=== PATIENT | female | born 1990 | race Caucasian/White ===

== ENCOUNTER → 2019-10-23 09:23 | Outpatient (BNVA) | payer MEDICAID, SELFPAY | PROVIDERS: Family Provider Family Medicine; Visit Provider Obstetrics & Gynecology | DX: Z32.01 Encounter for pregnancy test, result positive (principal) | CPT/HCPCS: 81025 ==

== ENCOUNTER → 2019-12-01 13:28 | Outpatient (BNVA) | payer MEDICAID, SELFPAY | PROVIDERS: Family Provider Family Medicine; Visit Provider Nurse Practitioner Women's Health | DX: O99.281 Endocrine, nutritional and metabolic diseases complicating pregnancy, first trimester (principal); O09.891 Supervision of other high risk pregnancies, first trimester; Z3A.10 10 weeks gestation of pregnancy | CPT/HCPCS: 81000 ==

== ENCOUNTER → 2019-12-15 13:53 | Outpatient (BNVA) | payer MEDICAID, SELFPAY | PROVIDERS: Family Provider Family Medicine; Visit Provider Obstetrics & Gynecology | DX: O09.299 Supervision of pregnancy with other poor reproductive or obstetric history, unspecified trimester (principal); O99.280 Endocrine, nutritional and metabolic diseases complicating pregnancy, unspecified trimester; E03.9 Hypothyroidism, unspecified; Z12.4 Encounter for screening for malignant neoplasm of cervix; Z3A.00 Weeks of gestation of pregnancy not specified | CPT/HCPCS: 80053; 80307; 81000; 84443; 85027; 86592; 86762; 86803; 86850; 86900; 87086; 87340; 87491; 87591; 87806; 88175 ==

== ENCOUNTER 2019-12-17 09:12 | Outpatient (CLI) | payer MEDICAID, SELFPAY ==
[2019-12-17 09:36] LABS: Total Volume, Urine 3000 mL
[2019-12-17 10:08] LABS: Total Protein 24 Hour Urine < 120.0 mg/24HR (0-150); Urine Total Protein 24 Hour < 4.0 mg/dL (0-150)
== END 2019-12-17 09:13 | disposition home or self-care (01) ==
LOC: LAB 09:13
PROVIDERS: Family Provider Family Medicine; Visit Provider Obstetrics & Gynecology
DX: O09.299 Supervision of pregnancy with other poor reproductive or obstetric history, unspecified trimester (principal)
CPT/HCPCS: 84156

== ENCOUNTER 2020-06-16 19:52 | Inpatient (IN) | payer BC, MEDICAID, SELFPAY ==
[2020-06-16] VITALS (62 sets, daily range): BP systolic 103–171; BP diastolic 60–89; PULSE 64–92; TEMP 36.3; O2SAT 97–100; BMI 31.4
[2020-06-16] MEDS: ampicillin 2,000 MG in sodium chloride 0.9% (plus) 50 ML 100 MG IV (20:35)
[2020-06-16] MEDS: lactated ringers 1,000 ML 999 ML IV (20:35)
[2020-06-16 20:45] LABS: Basophils % 0.2 %; Eosinophils # 0.1 10^3/uL (0.0-0.8); Eosinophils % 0.4 %; Hematocrit 39.3 % (37.0-47.0); Hemoglobin 13.4 g/dL (11.5-15.3); Lymphocytes # 2.1 10^3/uL (0.8-4.8); Lymphocytes % 15.7 %; Mean Corpuscular HGB Conc 34.1 g/dL (30.0-36.0); Mean Corpuscular Hemoglobin 30.5 pg (28.0-34.0); Mean Corpuscular Volume 89.5 fL (81-99); Mean Platelet Volume 12.3 fL (7.4-10.4); Monocytes # 0.7 10^3/uL (0.2-0.9); Monocytes % 5.2 %; Neutrophils % 78.2 %; Nucleated Red Blood Cells % 0 %; Platelet Count 217 10^3/cmm (130-400); Red Blood Count 4.39 10^6/uL (4.1-5.3); Red Cell Distribution Width 13.2 % (12.1-15.1); White Blood Count 13.5 10^3/uL (4.0-10.0)
--- NOTE | 2020-06-16 20:50 | P.ANESASSM_ITS ---
Pre-Anesthetic Assessment Pre-Anesthetic Assessment: Height/Weight: Height 1.7 m Temp Pulse BP Pulse Ox 97.3 F L 80 130/76 100 06/16/20 19:36 06/16/20 21:11 06/16/20 21:11 06/16/20 21:11 Preop Diagnosis: IUP Proposed Procedure: LABOR EPIDURAL Was Beta Aubrey taken within 24 hours: N/A Was Clonidine taken within 24 hours: N/A Social: Social History: No alcohol and No tobacco Exam: Pre-Anes Outpt Exam: alert, oriented x 3, clear to auscultation bilaterally and regular rate & rhythm Airway: Submandibular: WNL Cervical ROM: WNL MP: 1 History/ROS: No significant history except as noted Pulmonary: Pulmonary: None reported CV/HEM: CV/HEM: None reported : : None reported Hepatic: Hepatic: None reported GI: GI: GERD Metabolic: Metabolic: Thyroid Musc/skel: Musc/skel: None reported Neuropsych: Neuropsych: None reported Anesthetic Plan: ASA status: 1 Anesthesia: Anesthesia Evaluation Risk of > 500 ml blood loss (7ml/kg in children): No Meds/Allergies Current Medications: Current Medications Generic Name Dose Route Start Last Admin Trade Name Freq PRN Reason Stop Dose Admin Lactated Ringer's 1,000 mls @ 999 m ls/hr 06/16/20 19:51 06/16/20 20:35 Lactated Ringers IV 999 mls/hr .Q1H1M PRN Administration See label comment s PFSH Anesthesia PFSH: Medical History (Updated 12/18/19 @ 17:50 by Mague Walsh MD) Hypothyroidism Diagnosed as a teenager however was only started on medication in 2018 No pertinent past medical history Denies diabetes, asthma, hypertension, seizures, DVT/PE 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[facility] Surgical History H/O removal of cyst (~2014) 2014--sinus cavity Family History Family/Other Family history of thyroid problem Paternal uncle maternal aunt Grandmother Heart disease Maternal Mother Hypertension Denies family history of Colon cancer Ovarian cancer Diabetes Hyperlipidemia Breast cancer Uterine cancer Stroke Social History Smoking and tobacco status: never smoked Alcohol intake: never Other details last substance use: Denies drug use Additional social history: - - Data Anesthesia CBC & Chem 7: 06/16/20 20:30 Other Labs: Laboratory Results - last 48 hr 06/16/20 20:30 WBC 13.5 H RBC 4.39 Hgb 13.4 Hct 39.3 MCV 89.5 MCH 30.5 MCHC 34.1 RDW 13.2 Plt Count 217 MPV 12.3 H Neut % (Auto) 78.2 Lymph % (Auto) 15.7 [place] % (Auto) 5.2 Eos % (Auto) 0.4 Baso % (Auto) 0.2 Neut # (Auto) 10.60 H Lymph # (Auto) 2.1 [place] # (Auto) 0.7 Eos # (Auto) 0.1 Baso # (Auto) 0.0 Nucleated RBC % (auto) 0 Nucleated RBCs # 0.0 Cardiac Studies: No Data to Display
--- NOTE | 2020-06-16 21:16 | ANES.PROC ---
Anesthesia Procedures Procedure/Date: 06/16/20 Epidural: Time Out Performed: Yes Consents Signed: Procedure Consent Consent: requested by attending/covering physician Lumbar Level: L3-L4 Epidural position: sitting Epidural procedure: sterile prep of area, 1% lidocaine to numb the area, 18 g needle, negative for paresthesia passed, neg for paresthesia, test dose given, 1.5% xylocaine 1:200k epi (5ML), placed PCEA, no systemic response, sterile dressing applied, L.U.D. no apparent complications and 0.2% Ropiavacaine @ mls/hr (13)
[2020-06-17] VITALS (27 sets, daily range): BP systolic 109–133; BP diastolic 55–93; PULSE 69–100; RESP 16–17; TEMP 36.6–36.8; O2SAT 99–100
[2020-06-17] MEDS: ampicillin 1,000 MG in sodium chloride 0.9% (plus) 50 ML 100 MG IV (00:12)
[2020-06-17] MEDS: oxytocin 30 UNIT/500 ML BAG 600 UNIT IV (01:13)
--- NOTE | 2020-06-17 01:24 | PM.DELIVERY ---
Delivery Note: Date of delivery: June 17, 2020 Pre-delivery diagnoses: 9-year-old 2 para 1-0-0-1 with an estimated stational age of 38 weeks presenting in active labor Post-delivery diagnoses: Status post spontaneous vaginal delivery Procedure: Spontaneous vaginal delivery Op report anesthesia: Epidural Delivering Physician: Renato Palencia Estimated blood loss (mL): 200 Pre-Delivery Course: The patient presented to the hospital in active labor. She began having contractions a couple of hours prior to arriving at the hospital. An epidural was obtained. An amniotomy was performed. She received 2 doses of ampicillin as a part of her GBS protocol. She progressed to complete without difficulty. Her was unremarkable. Her blood type was B+. She was group B strep positive. She was Covid negative. Her glucose screen was negative. The remainder of her labs are within normal limits. Delivery: DELIVERY: The patient progressed to complete without difficulty. She delivered a male with a weight of 7 pounds 2 ounces with Apgars of 9, 10. The baby was delivered from the LOU position. The baby's mouth and nose were suctioned at the site of the perineum. The baby was then completely delivered and placed on the mother's abdomen. The cord was then clamped and cut. There was no nuchal cord. There was no meconium. The placenta and 3 vessel cord were delivered intact shortly thereafter. The perineum and vaginal vault were carefully examined. No lacerations were noted. Both the mother and the baby were in stable condition. Post-Delivery Status: Good Coding Level of Care Code Acute Activities Aide for Dave Thakkar
[2020-06-17] MEDS: lanolin oint 7 gm 1 APPLIC TOPICAL (05:32)
[2020-06-17] MEDS: benzocaine-menthol 78 gm Canister 1 SPRAY TOPICAL (05:33)
[2020-06-17] MEDS: docusate sodium 100 mg Capsule PO ×2 (09:09→18:24)
[2020-06-17] MEDS: prenatal vitamin Capsule 1 CAP PO (09:09)
[2020-06-17] MEDS: ibuprofen 800 mg tablet PO ×3 (09:09→21:23)
--- NOTE | 2020-06-17 12:23 | PC.NURSE ---
note This mom reports her last feeding went very well since our discussion this morning about positioning and latch.
[2020-06-17 14:02] LABS: Hematocrit 36.8 % (37.0-47.0); Hemoglobin 12.7 g/dL (11.5-15.3); Mean Corpuscular HGB Conc 34.5 g/dL (30.0-36.0); Mean Corpuscular Hemoglobin 31.2 pg (28.0-34.0); Mean Corpuscular Volume 90.4 fL (81-99); Mean Platelet Volume 12.4 fL (7.4-10.4); Platelet Count 191 10^3/cmm (130-400); Red Blood Count 4.07 10^6/uL (4.1-5.3); Red Cell Distribution Width 13.3 % (12.1-15.1); White Blood Count 12.8 10^3/uL (4.0-10.0)
[2020-06-18 05:31] VITALS: BP 118/69; PULSE 62
[2020-06-18] MEDS: prenatal vitamin Capsule 1 CAP PO (08:44)
[2020-06-18] MEDS: docusate sodium 100 mg Capsule PO (08:44)
[2020-06-18] MEDS: ibuprofen 800 mg tablet PO (08:44)
[2020-06-18 08:45] VITALS: BP 123/64; PULSE 77; RESP 18; TEMP 35.8
--- NOTE | 2020-06-18 08:53 | P.DS_ITS ---
Discharge Providers DIRECTOR ACCOUNT MANAGEMENT Date of Admission: 06/16/20 19:52 Date of Discharge: 06/18/20 Attending Provider at Admission: Renato Palencia MD Attending Provider at Discharge: Renato Palencia MD Primary Care Provider: [facility] Diagnoses at Discharge Discharge Diagnosis (1) 39 weeks gestation of : Status: Acute (2) Spontaneous vaginal delivery: Status: Acute Reason for Visit Reason for Visit: contractions Hospital Course Hospital Course The patient presented to the hospital in active labor. She obtained an epidural. An amniotomy was performed. She progressed to complete and had an unremarkable delivery of a healthy appearing male . Her course was also unremarkable. Her bleeding was within normal limits. She breast-fed well. Her pain was well controlled. Information Peripartum Data: Infant Delivery Method: Vaginal Physical Exam Narrative: EXAM NARRATIVE: The patient is alert. She appears comfortable. Her heart has a regular rate and rhythm with no murmurs appreciated. Lungs are clear to auscultation bilaterally. Her fundus is firm and below the umbilicus. Urinary Catheter Management^: Ramírez Latex Free: Cath Placed During This Visit: yes Urinary Catheter Date of Insertion: 06/16/20 Urinary Catheter Time of Insertion: 21:40 Discharge Data Data Completed and Pending: Labs from last 24 hours 06/17/20 13:15 WBC 12.8 H RBC 4.07 L Hgb 12.7 Hct 36.8 L MCV 90.4 MCH 31.2 MCHC 34.5 RDW 13.3 Plt Count 191 MPV 12.4 H Vitals: Last Vital Signs Temp 96.4 F L 06/18/20 08:45 Pulse 77 06/18/20 08:45 Resp 18 06/18/20 08:45 BP 123/64 06/18/20 08:45 Pulse Ox 100 06/17/20 00:11 Discharge Plan Discharge Patient Disposition: Home Condition: Stable Prescriptions: New ibuprofen 800 mg Tablet 800 mg PO TID Qty: 30 RF: 0 Continued levothyroxine 125 mcg capsule 125 mcg PO DAILY RF: 0 prenat.vits,dania,uls-ufyq-kxhch Tablet 1 tab PO DAILY RF: 0 Discharge Orders: Discharge Order (Routine); Ordered 06/18/20 Ordered By: Renato Palencia Referrals: Renato Palencia MD [Physician] - 07/28/20 11:15 am (Your 6 week post- appointment is scheduled for 07/28/20 with at 11:15. ) Discharge Diet: Usual diet Discharge Activity: Limit activity as instructed Patient Instructions: Vitamins (By mouth), Your Baby (GEN), Pre-eclampsia and Eclampsia (DC), Bleeding (DC), OB Discharge Report, OB Food/Drug Interaction Guide, OB Proud Parent Packet, OB Vaginal Deliveries Activity Restrictions/Additional Instructions: Repeat TSH prior to appointment in 6 weeks Discharge Attestations DIRECTOR ACCOUNT MANAGEMENT Time Spent in Discharge Care*: less than 30 min Specific Discharge Activities: Specific discharge activities: educating patient Coding Level of Care Code Acute Assistant Federal Public [employer] for Chg Fwd Diagnoses 39 weeks gestation of Z3A.39 Spontaneous vaginal delivery O80
[2020-06-18 10:13] VITALS: BP 123/64; PULSE 77; RESP 18; TEMP 35.8
== END 2020-06-18 10:05 | disposition home or self-care (01) | DRG 807 ==
LOC: OPOB 19:52 → OBGYN 19:52
PROVIDERS: Admitting Provider Family Medicine; Visit Provider Family Medicine
DX: O99.824 Streptococcus B carrier state complicating childbirth (principal); Z37.0 Single live birth; O99.284 Endocrine, nutritional and metabolic diseases complicating childbirth; Z3A.38 38 weeks gestation of pregnancy; E03.9 Hypothyroidism, unspecified; K21.9 Gastro-esophageal reflux disease without esophagitis; Z20.822 Contact with and (suspected) exposure to COVID-19
CPT/HCPCS: 12345; 36415; 51702; 59025; 59409; 85025; 85027; 98960; 99211; J0290; J2795

== ENCOUNTER 2024-06-02 07:10 | Inpatient (IN) | payer BC, MEDICAID, SELFPAY ==
[2024-06-02] VITALS (69 sets, daily range): BP systolic 107–160; BP diastolic 62–95; PULSE 65–118; TEMP 35.8–36.8; O2SAT 92–100; BMI 30.7
[2024-06-02] MEDS: oxytocin 30 UNIT/500 ML BAG IV (08:15)
[2024-06-02] MEDS: dextrose 5%-lactated ringers 1,000 ML 125 ML IV ×2 (08:17→15:37)
[2024-06-02 09:38] LABS: Basophils % 0.1 %; Eosinophils # 0.1 10^3/uL (0.0-0.8); Eosinophils % 1.2 %; Hematocrit 38.5 % (36-47); Lymphocytes # 1.8 10^3/uL (0.8-4.8); Lymphocytes % 24.8 %; Mean Corpuscular HGB Conc 33.5 g/dL (30-55); Mean Corpuscular Hemoglobin 29.7 pg (27-33); Mean Corpuscular Volume 88.5 fl (85-98); Monocytes # 0.7 10^3/uL (0.2-0.9); Monocytes % 8.9 %; Neutrophils # 4.72 10^3/uL (1.8-7.7); Neutrophils % 64.6 %; Nucleated Red Blood Cells % 0 %; Platelet Count 305 10^3/cmm (157-399); Red Blood Count 4.35 10^6/uL (3.85-5.65); Red Cell Distribution Width 13.3 % (12.1-15.1); White Blood Count 7.31 10^3/uL (3.29-11.43)
[2024-06-02] MEDS: sodium chloride 0.9% 1,000 ML 999 ML IV ×2 (11:50→12:55)
[2024-06-02] MEDS: ROPivacaine syringe 100 MG/50 ML SYRINGE 10 MG EPIDURAL (13:54)
--- NOTE | 2024-06-02 13:56 | ANES.PROC ---
Anesthesia Procedures Procedure/Date: 06/02/24 Epidural: Time Out Performed: Yes Consents Signed: Procedure Consent Consent: requested by attending/covering physician, from patient, risks and benefits reviewed and patient agrees to proceed Lumbar Level: L3-L4 Epidural position: sitting Epidural procedure: 1% lidocaine to numb the area, 18 g needle, neg for paresthesia, test dose given, 1.5% xylocaine 1:200k epi (4cc), 0.2% Ropivacaine bolus ml (4cc and Fentanyl 100cg), placed PCEA, no systemic response, sterile dressing applied and 0.2% Ropiavacaine @ mls/hr (13cc/hour) Additional Comments: Pt kari well
--- NOTE | 2024-06-02 14:00 | ANES.PREANE2 ---
Pre-Anesthetic Assessment Height/Weight: Height 1.7 m Weight 88.904 kg Temp Pulse BP Pulse Ox O2 Del Method 96.6 F L 74 123/62 100 Room Air 06/02/24 07:30 06/02/24 13:55 06/02/24 13:55 06/02/24 13:54 06/02/24 09:36 Social No alcohol and No tobacco Exam alert, oriented x 3, clear to auscultation bilaterally and regular rate & rhythm Airway Submandibular: within normal limits Cervical ROM: within normal limits Mallampati: Class II Dentition: full History/ROS No significant history except as noted Pulmonary None reported CV/HEM None reported None reported Hepatic None reported GI Gastroesophageal Reflux Disease Metabolic None reported Musc/skel None reported Neuropsych None reported Anesthetic Plan ASA status: 2 Anesthesia: Regional (specify below) (Epidural) Risk of > 500 ml blood loss (7ml/kg in children): No Medications/Allergies Home Medications ?Medication ?Instructions ?Recorded ?Confirmed ?Last Taken ?Type levothyroxine 125 mcg capsule 125 mcg PO DAILY 12/01/19 06/17/20 Unknown History prenat.vits,dania,cle-ftwe-hutmn 1 tab PO DAILY 12/01/19 06/17/20 Unknown History ibuprofen 800 mg tablet 800 mg PO TID #30 tabs 06/18/20 Unknown Rx Allergies Allergy/AdvReac Type Severity Reaction Status Date / Time diphenhydramine (From Allergy ALGY-Hives Verified 12/15/19 14:34 Benadryl) latex Allergy ALGY-Hives Verified 06/17/20 05:39 levothyroxine sodium (From Allergy ALGY-Rash Verified 12/15/19 14:34 Synthroid) Current Medications Generic Name Dose Route Start Last Admin Trade Name Freq PRN Reason Stop Dose Admin Dextrose/Lactated Ringer's 1,000 mls @ 125 mls/hr 06/02/24 07:45 06/02/24 11:50 Dextrose 5%-Lactated Ringers IV 0 mls/hr .Q8H MANUEL Infusion Oxytocin 30 unit in 500 mls @ 1 mls/hr 06/02/24 08:15 06/02/24 10:50 Pitocin IV 10 milliunit/min .Q24H MANUEL 10 mls/hr Titration Protocol 1 MILLIUNIT/MIN Ropivacaine 100 mg in 50 mls @ 10 mls/hr 06/02/24 11:45 06/02/24 13:54 Naropin Syringe EPIDURAL 10 mls/hr .Q5H MANUEL Administration Sodium Chloride 1,000 mls @ 999 mls/hr 06/02/24 11:44 06/02/24 13:25 Sodium Chloride 0.9% IV 500 mls/hr .Q1H1M PRN Infusion See label comments PFSH Anesthesia Medical History (Updated 06/18/20 @ 08:54 by Renato Palencia MD) No pertinent past medical history Denies diabetes, asthma, hypertension, seizures, DVT/PE 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 Hypothyroidism Diagnosed as a teenager however was only started on medication in 2018 Surgical History H/O removal of cyst (~2014) 2014--sinus cavity Family History Family/Other Family history of thyroid problem Paternal uncle maternal aunt Grandmother Heart disease Maternal Mother Hypertension Denies family history of Colon cancer Ovarian cancer Diabetes Hyperlipidemia Breast cancer Uterine cancer Stroke Social History Smoking and tobacco/nicotine status: never used tobacco/nicotine Alcohol intake: never Additional social history: - - Female Reproductive History : 3 Data Anesthesia 06/02/24 07:50 Short CBC 06/02/24 Range/Units 07:50 WBC 7.31 (3.29-11.43) 10^3/uL Hgb 12.90 (11.27-16.99) g/dL Hct 38.5 (36-47) % MCV 88.5 (85-98) fl Plt Count 305 (157-399) 10^3/cmm Neut % (Auto) 64.6 % Neut # (Auto) 4.72 (1.8-7.7) 10^3/uL Blood Bank 06/02/24 07:50 Blood Type B Positive Rho(D) Type Rh positive Antibody Screen Negative Cardiac Studies: No Data to Display
--- NOTE | 2024-06-02 16:28 | PM.OPHPUD ---
Labor & Delivery H&P Update Date of Procedure: June 02, 2024 Date H&P Performed: 05/28/24 Admission Diagnosis: IUP at 39 weeks 2 days gestation Primary indication for procedure: Elective induction Planned procedure: Induction of labor and delivery
--- NOTE | 2024-06-02 16:29 | PM.DELIVERY ---
Delivery Note: Date of delivery: June 02, 2024 Estimated blood loss (mL): 100 Pre-Delivery Course: The patient had routine care at [facility]. The patient has hypothyroidism and was on levothyroxine with normal TSH throughout the . Otherwise there were no complications during the . labs: Blood type B+ antibody negative, hepatitis B nonreactive, hepatitis C nonreactive, HIV nonreactive, rubella immune, GC chlamydia negative, RPR nonreactive, UDS negative, Q low risk, she passed her glucose tolerance test, she was GBS negative. Delivery: This is a 33-year-old G3, P2 at 39 weeks 2 days gestation who requested an elective induction. Her cervix was favorable and she was started on Pitocin. She received an epidural for pain management. She underwent artificial rupture of membranes at 7 cm and about 30 minutes later she had a normal spontaneous vaginal delivery of a viable female infant weight 3280 g, 7 pounds 4 ounces, Apgars 9 and 9 over an intact perineum. She only had to push through half of a contraction. The infant was suctioned at delivery and placed on the mother's chest. The cord was clamped and cut. The placenta was delivered grossly intact and normal to inspection. There were no lacerations. History History History 3 Term 2 0 Miscarriages/Ectopic 0 Living Children 2 A&P Assessment and plan (1) Normal spontaneous vaginal delivery: Routine care (2) Sterilization consult: Patient has previously requested bilateral tubal ligation. This will be scheduled for sometime tomorrow. PDMP PDMP Reviewed: Not Reviewed Coding Level of Care Code Acute Code for Chg Fwd Diagnoses Normal spontaneous vaginal delivery O80 Sterilization consult Z30.09
--- NOTE | 2024-06-02 19:05 | PC.NURSE ---
ambulated to OB 12 for routine post stay. oriented to room/call light.
[2024-06-03] VITALS (16 sets, daily range): BP systolic 114–151; BP diastolic 73–95; PULSE 70–94; RESP 14–16; TEMP 36.4–36.7; O2SAT 92–98
[2024-06-03] MEDS: ibuprofen 800 mg tablet PO ×2 (00:05→15:40)
[2024-06-03 04:51] LABS: Hematocrit 33.6 % (36-47); Mean Corpuscular HGB Conc 33.6 g/dL (30-55); Mean Corpuscular Hemoglobin 29.4 pg (27-33); Mean Corpuscular Volume 87.3 fl (85-98); Platelet Count 244 10^3/cmm (157-399); Red Blood Count 3.85 10^6/uL (3.85-5.65); Red Cell Distribution Width 13.2 % (12.1-15.1); White Blood Count 10.06 10^3/uL (3.29-11.43)
--- NOTE | 2024-06-03 06:10 | ANES.PAUD2 ---
Pre-Anesthetic Update Pre-Anesthetic Assessment: Date of Surgery/Procedure: 06/03/24 Proposed Procedure: Operation Date: 06/03/24 07:10 Proposed Procedures p Post Bilateral Tubal Ligation(Bilateral) - Valeria Jimenez MD Changes from Pre-Anesthetic Assessment: No changes since yesterday. NPO since yesterday evening. Blood loss for delivery documented at 800 mL labs reviewed from this morning and acceptable for procedure. Plan for GETA Labs Last 48hrs: Short CBC 06/02/24 06/03/24 Range/Units 07:50 04:15 WBC 7.31 10.06 (3.29-11.43) 10^ 3/uL Hgb 12.90 11.30 (11.27-16.99) g/ dL Hct 38.5 33.6 L (36-47) % MCV 88.5 87.3 (85-98) fl Plt Count 305 244 (157-399) 10^3/c mm Neut % (Auto) 64.6 % Neut # (Auto) 4.72 (1.8-7.7) 10^3/u L Blood Bank 06/02/24 07:50 Blood Type B Positive Rho(D) Type Rh positive Antibody Screen Negative Vitals: Temperature 98.0 F 06/03/24 02:30 Temperature Source Axillary 06/03/24 02:30 Pulse Rate 83 06/03/24 02:30 Pulse Rhythm Regular 06/02/24 09:36 Respiratory Effort Spontaneous, Non- Labored 06/02/24 09:36 Respiratory Depth Normal 06/02/24 09:36 Respiratory Patter n Normal 06/02/24 09:36 Blood Pressure 132/84 06/03/24 02:30 Blood Pressure Daisy n 100 06/03/24 02:30 Pulse Oximetry 99 06/02/24 14:59 Oxygen Delivery Me thod Room Air 06/02/24 09:36 Cardiac Studies: No Data to Display
[2024-06-03] MEDS: sodium chloride 0.9% 1,000 ML 999 ML IV (06:14)
[2024-06-03] MEDS: famotidine 20 mg/2 mL INJ IVP (06:55)
[2024-06-03] MEDS: citric acid-sodium citrate 30 mL UDC PO (06:55)
[2024-06-03] MEDS: metoclopramide 5 mg/mL SDV 2 mL 10 MG IVP (06:55)
--- NOTE | 2024-06-03 07:00 | P.HP_ITS ---
Providers/Chief Complaint 2 Admitting Physician: Valeria Jimenez MD Primary Care Provider: Valeria Jimenez MD Chief Complaint: IOL History of Present Illness Tien Bartlett is a 33 year old female G3 now P3 who had a normal spontaneous vaginal delivery of a viable female . She expressed desire to undergo permanent surgical sterilization and is scheduled for that this morning Review of Systems 2 General: Reports: Other (No fevers chills, nausea vomiting, she has had average vaginal bleeding and) Medications/Allergies Home Medications ?Medication ?Instructions ?Recorded ?Confirmed ?Last Taken ?Type levothyroxine 125 mcg capsule 125 mcg PO DAILY 0 06/17/20 Unknown History prenat.vits,dania,wdo-himc-xwfxs 1 tab PO DAILY 12/01/19 06/17/20 Unknown History ibuprofen 800 mg tablet 800 mg PO TID #30 tabs 06/18 Unknown Rx Allergies Allergy/AdvReac Type Severity Reaction Status Date / Time diphenhydramine (From Allergy ALGY-Hives Verified 12/15/19 14:34 Benadryl) latex Allergy ALGY-Hives Verified 06/17/20 05:39 levothyroxine sodium (From Allergy ALGY-Rash Verified 12/15/19 14:34 Synthroid) PFSH Acute 2 PFSH: Medical History (Updated 06/02/24 @ 16:34 by Valeria Jimenez MD) No pertinent past medical history Denies diabetes, asthma, hypertension, seizures, DVT/PE 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[facility] Hypothyroidism Diagnosed as a teenager however was only started on medication in 2018 Surgical History H/O removal of cyst (~2014) 2014--sinus cavity Family History Family/Other Family history of thyroid problem Paternal uncle maternal aunt Grandmother Heart disease Maternal Mother Hypertension Denies family history of Colon cancer Ovarian cancer Diabetes Hyperlipidemia Breast cancer Uterine cancer Stroke Social History Smoking and tobacco/nicotine status: never used tobacco/nicotine Alcohol intake: never Additional social history: - - Female Reproductive History: : 3 Vitals/I&O/Wt Last Vital Signs Temp 98.0 F 06/03/24 02:30 Pulse 83 06/03/24 02:30 BP 132/84 06/03/24 02:30 Pulse Ox 99 06/02/24 14:59 O2 Del Method Room Air 06/02/24 09:36 06/02/24 06/03/24 06/03/24 22:59 06:59 14:59 Intake Total 1337.00 / 3338.000 Output Total 800 / 800 Balance 537.00 / 2538.000 Weight last 48 hrs Weight 88.904 kg Physical Exam 2 Narrative: Alert and oriented, heart regular rate and rhythm, lungs clear to auscultation bilaterally, abdomen is soft and nontender, fundus is firm, extremities have no edema no calf tenderness Urinary Catheter Management: Ramírez Latex Free: Cath Placed During This Visit: yes, but has since been removed by the nurse Reason for Continuing Indwelling Catheter: Decision to DC Catheter Urinary Catheter Date of Insertion: 06/02/24 Urinary Catheter Time of Insertion: 15:00 Date Urinary Catheter Removed: 06/02/24 Time Urinary Catheter Discontinued: 16:10 Data 06/03/24 04:15 A&P Assessment and plan (1) Sterilization consult: There is benefits and alternatives of bilateral tubal ligation have been discussed with the patient in detail. She has signed a Medicaid form well ahead of time in clinic. We will be taking her back to the OR shortly. (2) Normal spontaneous vaginal delivery: PDMP PDMP Reviewed: Not Reviewed Attestations 2 Medical Necessity Statement*: Routine surgery and postoperative care Coding Level of Care Code Acute Code for Chg Fwd Diagnoses Sterilization consult Z30.09 Normal spontaneous vaginal delivery O80
--- NOTE | 2024-06-03 08:00 | ANE.PACU2 ---
Inpatient post-anesthesia follow up: Airway intact: Yes Vital signs: Temperature 98.0 F Pulse Rate 84 Respiratory Rate 16 Blood Pressure 132/84 Pulse Oximetry 96 Oxygen Delivery Me thod Room Air Oxygen Flow Rate Fraction of Inspir ed Oxygen Hydration adequate: Yes Nausea and vomiting: No Pain level: 1 Mental status: Baseline Epidural Start/End: Epidural Start Date: 06/02/24 Epidural Start Time: 13:30 Epidural End Date: 06/02/24 Epidural End Time: 16:25
--- NOTE | 2024-06-03 08:50 | ANE.PACU2 ---
Inpatient post-anesthesia follow up: Airway intact: Yes Vital signs: Temperature 98.1 F Pulse Rate 81 Respiratory Rate 16 Blood Pressure 122/85 Pulse Oximetry 92 Oxygen Delivery Me thod Room Air Oxygen Flow Rate Fraction of Inspir ed Oxygen Hydration adequate: Yes Nausea and vomiting: No Pain level: 1 Mental status: Baseline
--- NOTE | 2024-06-03 09:00 | PM.OP ---
Operative Report Date of procedure: June 03, 2024 Pre-op diagnosis: Desired permanent surgical sterilization Post-op diagnosis: Same Procedure done: bilateral tubal ligation Pathology: Segments of right and left fallopian tubes Surgeon: Valeria Jimenez MD Estimated blood loss (mL): 3 IV fluids (mL): 1,000 Complications: None Procedure: The patient was taken to the OR where general anesthesia was administered. She was prepped and draped in normal sterile fashion in dorsal supine position. A curvilinear infraumbilical incision was made and carried through to the underlying layer of fascia bluntly using a hemostat. The fascia was grasped with Allis clamps and entered sharply using the Mayos. The peritoneum was then entered bluntly. The right fallopian tube was grasped with a [place] and brought into the operative field. Fimbria were identified. A distal portion of the tube was ligated and excised. Segment of the tube was sent to pathology. Tubal ostia were visualized. The cut portions of the tube were coagulated using the Bovie and then returned to the abdomen. The left fallopian tube was then grasped with a Cyndi and brought into the operative field. A distal portion of the tube was ligated and excised. Tubal ostia were visualized. Segment of the tube was sent to pathology. The cut portions of the tube were coagulated using the Bovie. The proximal segment began bleeding and was grasped with an Allis clamp and Bovie to hemostasis. As an extra precaution I placed a second ligature over the end of this segment. Once hemostasis was obtained the cut segments were returned to the abdomen. The fascia was then reapproximated using 0 Vicryl in a running fashion. Skin was then reapproximated using 4-0 Vicryl in a running fashion. 10 mL of 2% lidocaine were injected circumferentially around the incision site. Steri-Strips and a pressure bandage were applied. Patient went to recovery in good condition. Sponge instrument and needle counts were correct.
[2024-06-03] MEDS: HYDROcodone-acetaminophen 5-325 mg Tablet PO (09:01)
[2024-06-03] MEDS: BUPivacaine 0.5% INJ 10 mL INJECTION (09:20)
[2024-06-03] MEDS: ceFAZolin 2,000 mg SDV 2000 MG IVP (09:20)
[2024-06-03 15:55] LABS: Hematocrit 37.1 % (36-47); Mean Corpuscular HGB Conc 34.2 g/dL (30-55); Mean Corpuscular Hemoglobin 30.1 pg (27-33); Mean Corpuscular Volume 87.9 fl (85-98); Mean Platelet Volume 11.2 fL (7.4-10.4); Platelet Count 324 10^3/cmm (157-399); Red Blood Count 4.22 10^6/uL (3.85-5.65); Red Cell Distribution Width 13.2 % (12.1-15.1); White Blood Count 10.94 10^3/uL (3.29-11.43)
--- NOTE | 2024-06-03 16:32 | PM.DCS ---
Discharge Providers Date of Admission: 06/02/24 07:10 Date of Discharge: June 03, 2024 Attending Provider at Admission: Valeria Jimenez MD Attending Provider at Discharge: Valeria Jimenez MD Primary Care Provider: Valeria Jimenez MD Diagnoses at Discharge Discharge Diagnosis (1) Sterilization consult: Status: Acute (2) Normal spontaneous vaginal delivery: Status: Acute Reason for Visit Reason for Visit: IOL Hospital Course Hospital Course This is a 33-year-old G3 now P3 who had a normal spontaneous vaginal delivery of a viable female infant at 39 weeks 2 days gestation. Mother had a bilateral tubal ligation on day #1. She has been ambulating, tolerating a regular diet, has good pain control with medications and is comfortable with discharge home Physical Exam Narrative: Alert and oriented, walking the hallways, abdomen is soft with appropriate postoperative tenderness, dressing is clean dry and intact Urinary Catheter Management: Ramírez Latex Free: Cath Placed During This Visit: yes, but has since been removed by the nurse Reason for Continuing Indwelling Catheter: Decision to DC Catheter Urinary Catheter Date of Insertion: 06/03/24 Urinary Catheter Time of Insertion: 07:15 Date Urinary Catheter Removed: 06/03/24 Time Urinary Catheter Discontinued: 12:00 Discharge Data Studies Completed and Pending Pending at discharge Category Date Time Status Pathology: Surgical [PTH] Routine Pth 06/03/24 09:25 Received Laboratory Results WBC 10.94 10^3/uL (3.29-11.43) 06/03/24 15:22 RBC 4.22 10^6/uL (3.85-5.65) 06/03/24 15:22 Hgb 12.70 g/dL (11.27-16.99) 06/03/24 15:22 Hct 37.1 % (36-47) 06/03/24 15:22 MCV 87.9 fl (85-98) 06/03/24 15:22 MCH 30.1 pg (27-33) 06/03/24 15:22 MCHC 34.2 g/dL (30-55) 06/03/24 15:22 RDW 13.2 % (12.1-15.1) 06/03/24 15:22 Plt Count 324 10^3/cmm (157-399) D 06/03/24 15:22 MPV 11.2 fL (7.4-10.4) H 06/03/24 15:22 Neut % (Auto) 64.6 % 06/02/24 07:50 Lymph % (Auto) 24.8 % 06/02/24 07:50 [place] % (Auto) 8.9 % 06/02/24 07:50 Eos % (Auto) 1.2 % 06/02/24 07:50 Baso % (Auto) 0.1 % 06/02/24 07:50 Neut # (Auto) 4.72 10^3/uL (1.8-7.7) 06/02/24 07:50 Lymph # (Auto) 1.8 10^3/uL (0.8-4.8) 06/02/24 07:50 [place] # (Auto) 0.7 10^3/uL (0.2-0.9) 06/02/24 07:50 Eos # (Auto) 0.1 10^3/uL (0.0-0.8) 06/02/24 07:50 Baso # (Auto) 0.0 10^3/uL (0.0-0.1) 06/02/24 07:50 Nucleated RBC % (auto) 0 % 06/02/24 07:50 Nucleated RBCs # 0.0 /100WBC 06/02/24 07:50 Blood Type B Positive 06/02/24 07:50 Rho(D) Type Rh positive 06/02/24 07:50 Antibody Screen Negative 06/02/24 07:50 Vitals Last Vital Signs Temp 98.1 F 06/03/24 13:55 Pulse 83 06/03/24 13:55 Resp 16 06/03/24 09:19 BP 138/82 06/03/24 13:55 Pulse Ox 96 06/03/24 13:55 O2 Del Method Room Air 06/03/24 13:55 Discharge Plan Discharge Patient Disposition: Home Condition: Stable Prescriptions: New hydrocodone-acetaminophen 5-325 mg Tablet 1 - 2 tab PO Q6H PRN (Reason: Moderate To Severe Pain) Qty: 10 0RF Continued levothyroxine 125 mcg capsule 125 mcg PO DAILY prenat.vits,dania,xyn-zhrh-vtrhs Tablet 1 tab PO DAILY ibuprofen 800 mg Tablet 800 mg PO TID Qty: 30 0RF Discharge Orders: Discharge Order (Routine); Ordered 06/03/24 Ordered By: Valeria Jimenez Referrals: Valeria Jimenez MD [Primary Care Provider] - 07/01/24 10:30 am (Also follow-up in 1 week for incision check) Discharge Diet: Usual diet Discharge Activity: Limit activity as instructed Patient Instructions: Depression (DC), Opioid Safety (DC), Preeclampsia and Eclampsia After Delivery (GEN), Hemorrhage (DC), OB Discharge Report, OB Food/Drug Interaction Guide, OB Care at Home, Opioid Safety, OB Vaginal Deliveries, Abnormal Bleeding Activity Restrictions/Additional Instructions: No lifting greater than 10 pounds for 2 weeks. Keep incision clean and dry. Nothing per vagina for 6 weeks. Discharge Attestations Time Spent in Discharge Care*: less than 30 min Quality Metrics Clinical Quality Measures [ No reported AMI, CVA or VTE this stay] Coding Level of Care Code Acute Code for Chg Fwd Diagnoses Sterilization consult Z30.09 Normal spontaneous vaginal delivery O80
== END 2024-06-03 18:38 | disposition home or self-care (01) | DRG 798 ==
LOC: OPOB 07:11 → OBGYN 07:11
PROVIDERS: Admitting Provider Family Medicine; PCP Family Medicine; Visit Provider Family Medicine
PROC: 0UB73ZZ Excision of Bilateral Fallopian Tubes, Percutaneous Approach (ICD-10-PCS; CPT 58605; principal; 2024-06-03 07:00)
DX: O99.284 Endocrine, nutritional and metabolic diseases complicating childbirth (principal); Z37.0 Single live birth; E03.9 Hypothyroidism, unspecified; Z3A.39 39 weeks gestation of pregnancy
CPT/HCPCS: 36415; 51702; 58605; 59409; 85025; 85027; 86850; 86900; 88302; 96374; J0690; J1100; J1885; J2405; J2590; J2704; J2765; J2795; J3010; J3490; J7030; J7121; J9999